=== PATIENT | male | born 1945 | race Two or more races ===

== ENCOUNTER 2025-02-07 09:07 | Day surgery (SDC) | payer MEDICARE, MEDICAID, SELFPAY ==
[2025-02-03 09:57] VITALS: BMI 26.6
[2025-02-04 11:53] LABS: Basophils # (Auto) 0.1 Thou/mm3 (0.0-0.2); Basophils % (Auto) 1 % (0-2.5); Eosinophils # (Auto) 0.2 Thou/mm3 (0.0-0.5); Eosinophils % (Auto) 3 % (0-10); Hematocrit 41.6 % (41.0-53.0); Hemoglobin 13.5 g/dL (13.5-16.0); Immature Granulocytes % (Auto) 0 % (0-0); Immature Granulocytes Auto 0.02 Thou/mm3 (0.00-0.00); Lymphocytes # (Auto) 1.8 Thou/mm3 (1.0-4.8); Lymphocytes % (Auto) 22 % (10-50); Mean Corpuscular HGB Conc 32.5 g/dl (31.0-37.0); Mean Corpuscular Hemoglobin 25.9 pg (25.0-35.0); Mean Corpuscular Volume 80 fL (80-100); Monocytes # (Auto) 0.6 Thou/mm3 (0.0-0.8); Monocytes % (Auto) 7 % (0-12); Neutrophils # (Auto) 5.6 Thou/mm3 (1.8-7.7); Neutrophils % (Auto) 67 % (37-80); Nucleated Red Blood Cell % 0 /100 WBC (0); Platelet Count 206 Thou/mm3 (140-440); RDW Standard Deviation 39.3 fL (35.1-43.9); Red Blood Count 5.21 Miln/mm3 (4.50-5.90); White Blood Count 8.3 Thou/mm3 (3.8-10.6)
[2025-02-04 11:58] LABS: INR 1.2 (0.9-1.3); Partial Thromboplastin Time 27.9 Seconds (22.0-36.0); Prothrombin Time 12.7 Seconds (9.0-12.2)
[2025-02-04 11:59] LABS: Anion Gap 5 (7-16); BUN/Creatinine Ratio 13 Ratio (12-20); Blood Urea Nitrogen 13 mg/dL (9-23); Calcium 9.5 mg/dL (8.3-10.6); Carbon Dioxide 27.8 mMol/L (20.0-31.0); Chloride 105 mMol/L (98-107); Estimated Creatinine Clearance 61.9 mL/min (>60); Glucose 177 mg/dL (74-106); Osmolality,Calculated 279 (275-295); Potassium 4.8 mMol/L (3.4-5.1); Sodium 138 mMol/L (136-145); eGFR > 60 See Note
[2025-02-07] VITALS (9 sets, daily range): BP systolic 127–163; BP diastolic 69–97; PULSE 54–60; RESP 13–19; TEMP 36.4; O2SAT 92–97
--- NOTE | 2025-02-07 19:49 | ESOP_ITS ---
RE: HOA HOWARD : 1945 DATE OF OPERATION: 02/07/2025 DUAL CHAMBER AICD GENERATOR CHANGE OUT REFERRING PHYSICIAN: Estephania Cardozo MD in the long-term. PROCEDURE PERFORMED: Dual chamber AICD generator change out. INDICATIONS FOR PROCEDURE: The patient with history of chronic congestive heart failure, history of arteriosclerotic heart disease with previous history of coronary artery bypass graft surgery and intracoronary stenting. During the routine AICD check, patient was noted to have end-of-life parameters of AICD generator. DETAILS OF THE PROCEDURE: After explaining the procedure in detail to the patient and his family and after obtaining a proper consent, patient was given total of 2 mg of intravenous Versed and 75 mcg of intravenous fentanyl before and during the procedure. The left subclavian area was prepped with antiseptic solution. Local anesthetic 2% lidocaine was used and an oblique incision 5 cm in length was made in the left subclavian area. Subcutaneous tissues were dissected. The AICD generator pocket was opened and the generator was taken out of the pocket. The leads were unscrewed and were tested and as the leads were functioning satisfactorily, a new AICD generator was attached to the leads and was put back in the pocket. The pocket was irrigated with IV Ancef solution. Subcutaneous tissue was closed with 2-0 chromic catgut continuous sutures. Skin was closed with gisele. The patient tolerated the procedure very well without any complication. The AICD generator used is [employer] model D233 Vigilant EL ICD DF4-DR, serial number [id number]. The AICD leads data is as follows: The right atrial lead threshold potential obtained was 0.7 V with current threshold of 1.3 mA and lead resistance of 548 ohms. The ventricular lead threshold potential obtained is 0.7 V with current threshold of 1.5 mA and lead resistance of 474 ohms. R-wave amplitude is 24.9 mV and the P-wave amplitude is 5.2 mV. The AICD settings are as follows: The patient is set in VT mode rate of 160-180 beats per minute. Beyond 180 beats per minute, the VT settings are for ATP and shocks at 41 joules x4. The V-fib settings are a rate of 210 beats with shock settings of 41 joules for total of 6 times. cc: Estephania Cardozo MD(User) DT: 13:23:05 TT: 16:17:00 Ref: [id number] - TID: [id number]
== END 2025-02-07 13:50 | disposition home or self-care (01) ==
PROVIDERS: PCP Hospitalist; Referring Provider Internal Medicine Cardiovascular Disease; Visit Provider Internal Medicine Cardiovascular Disease
PROC: 0JPT0PZ Removal of Cardiac Rhythm Related Device from Trunk Subcutaneous Tissue and Fascia, Open Approach (ICD-10-PCS; CPT 33263; principal; 2025-02-07 10:00)
DX: Z45.010 Encounter for checking and testing of cardiac pacemaker pulse generator [battery] (principal); I25.10 Atherosclerotic heart disease of native coronary artery without angina pectoris; I10 Essential (primary) hypertension; E78.5 Hyperlipidemia, unspecified; E11.9 Type 2 diabetes mellitus without complications; I08.1 Rheumatic disorders of both mitral and tricuspid valves; Z95.5 Presence of coronary angioplasty implant and graft; Z95.1 Presence of aortocoronary bypass graft; Z79.4 Long term (current) use of insulin; Z79.82 Long term (current) use of aspirin; Z79.899 Other long term (current) drug therapy
CPT/HCPCS: 33263; 36415; 80048; 85025; 85610; 85730; 99152; 99153; A4649; C1721; J0153; J0171; J0282; J0461; J0690; J2250; J2310; J2371; J2405; J3010; J3490